=== PATIENT | male | born 1940 | race Caucasian/White ===

== ENCOUNTER → 2017-10-31 11:57 | Outpatient (CLI) | payer MEDICARE, OTHER, SELFPAY ==
--- NOTE | 2017-10-31 | DI.MRI.S_ITS ---
PROCEDURE: MR ABDOMEN WO CON INDICATIONS: MALIGNANT KIDNEY TECHNIQUE: Axial 2-D FLASH in- and [id number], axial breath-hold T2 FSE, axial STIR FSE. Optional contrast may be given, followed by axial 2-D FLASH with fat saturation acquired over the lesion of concern. COMPARISON: [facility], MR, ABDOMEN WITH AND WITHOUT CONTR, 07/31/2010, 11:08. [facility], MR, ABDOMEN WITH AND WITHOUT CONTR, 06/15/2009, 9:34. [facility], MR, ABDOMEN WITH AND WITHOUT CONTR, 09/02/2008, 11:55. [facility], MR, ABDOMEN W&WO CONTRAST, 08/14/2012, 15:02. [facility], MR, ABDOMEN WITHOUT CONTRAST, 09/30/2014, 10:07. FINDINGS: Image quality: Excellent. Region of interest: Kidneys bilaterally. The patient has undergone a partial nephrectomy on the left removing a heterogeneous enhancing mass previously present, and this had been performed before the most recent comparison MRI from 09/30/14. The current study shows multiple bilateral renal cortical cysts, right greater than left, with moderate interval enlargement of several large cysts on the right, increasing mass effect against the right kidney. For example, the largest cyst on the right projecting anteriorly and measured up to 14.0 cm and now measures 16.9 cm in maximal oblique AP dimension. Note is made of a rounded soft tissue mass at the medial border of the middle third of the left kidney previously having measured 2.9 cm and now measuring only 3.0 cm, considered to have not significantly enlarged in size from July of 2014. This is best seen on series 9 image 139, and warrants continued attention on followup imaging. Bones: Nearby osseous structures demonstrate normal overall marrow signal. IMPRESSION: Evaluated 1. No growing mass lesion found. There is a rounded masslike structure at the medial border of the middle third of the left mid kidney measuring up to 3.0 cm currently and having only measured 2.9 cm in July of 2014. By morphology and appearance this structure warrants directed attention on followup scanning but a definite underlying growing malignancy is not seen at that site. Interval increase in a number of the cysts which are large and impinge upon the right kidney as discussed above. No right renal mass is seen that would suggest presence of underlying neoplasm. Dictated by: Chance Puri M.D. on 10/31/2017 at 15:14 Approved by: Chance Puri M.D. on 10/31/2017 at 15:29
== END ==
PROVIDERS: PCP Internal Medicine; Visit Provider Transplant Surgery
DX: C64.9 Malignant neoplasm of unspecified kidney, except renal pelvis (principal)
CPT/HCPCS: 74181

== ENCOUNTER → 2018-01-23 11:52 | Outpatient (CLI) | payer MEDICARE, OTHER, SELFPAY ==
[2018-01-23 12:43] LABS: Aspartate Aminotransferase 15 IU/L (17-59); BUN Creatinine Ratio 12.4 (6-22); Blood Urea Nitrogen 31 mg/dL (9-20); Calcium 9.5 mg/dL (8.4-10.2); Carbon Dioxide 28 mmol/L (22-32); Chloride 107 mmol/L (98-107); Cholesterol 134 mg/dL (140-199); Estimated Glomerular Filt Rate 25.1 mL/min (>60); Glucose 93 mg/dL (80-110); HDL Cholesterol 40 mg/dL (40-60); HEMOLYSIS < 15 (0-50); LDL Cholesterol Calculated 86 mg/dL (<100); Potassium 3.8 mmol/L (3.4-5.1); Sodium 146 mmol/L (137-145); Triglycerides 41 mg/dL (35-150); Uric Acid 7.7 mg/dL (3.5-8.5)
[2018-01-23 13:20] LABS: Prostate Specific Antigen < 0.064 ng/mL (0.10-4.00)
== END ==
PROVIDERS: PCP Internal Medicine; Visit Provider Internal Medicine
DX: E78.2 Mixed hyperlipidemia (principal); I10 Essential (primary) hypertension; M10.9 Gout, unspecified; C61 Malignant neoplasm of prostate
CPT/HCPCS: 36415; 80048; 80061; 84153; 84450; 84550

== ENCOUNTER → 2018-03-02 10:51 | Outpatient (CLI) | payer MEDICARE, OTHER, SELFPAY ==
[2018-03-02 12:39] LABS: Add Manual Diff / Slide Review NO; Basophils Percent Auto 0.7 % (0-2); Hematocrit 35.3 % (41-53); Hemoglobin 11.8 g/dL (13.5-17.5); Lymphocytes Percent Auto 13.7 % (25-40); Mean Corpuscular HGB Conc 33.5 % (30-36); Mean Corpuscular Hemoglobin 28.9 PG (26-34); Mean Corpuscular Volume 86.3 fL (80-100); Monocytes Percent Auto 8.9 % (3-14); Neutrophils Absolute Auto 3800 /uL (3000-5900); Neutrophils Percent Auto 72.7 % (50-75); Platelet Count 192 X10^3/uL (150-400); Red Blood Cell Count 4.09 X10^6/uL (4.5-5.9); Red Cell Distribution Width 15.2 % (11.6-14.8); White Blood Cell Count 5.2 X10^3/uL (4.5-11.0)
[2018-03-02 13:10] LABS: Alanine Aminotransferase 25 IU/L (21-72); Albumin 3.9 g/dL (3.5-5.0); Albumin Globulin Ratio 1.4 (1.0-2.8); Alkaline Phosphatase 73 U/L (38-126); Aspartate Aminotransferase 19 IU/L (17-59); Bilirubin Total 1.3 mg/dL (0.2-1.3); Blood Urea Nitrogen 35 mg/dL (9-20); Calcium 9.6 mg/dL (8.4-10.2); Carbon Dioxide 31 mmol/L (22-32); Chloride 109 mmol/L (98-107); Estimated Glomerular Filt Rate 25.1 mL/min (>60); Globulin 2.8 g/dL (1.7-4.1); Glucose 89 mg/dL (80-110); HEMOLYSIS < 15 (0-50); Potassium 3.9 mmol/L (3.4-5.1); Sodium 151 mmol/L (137-145); Total Protein 6.7 g/dL (6.3-8.2)
== END ==
PROVIDERS: PCP Internal Medicine; Visit Provider Internal Medicine
DX: Q61.00 Congenital renal cyst, unspecified (principal)
CPT/HCPCS: 36415; 80053; 85025

== ENCOUNTER 2018-03-25 20:15 | Observation (INO) | payer MEDICARE, OTHER, SELFPAY ==
[2018-03-25 20:24] VITALS: BP 159/95; PULSE 94; RESP 22; TEMP 36.9; O2SAT 88
--- NOTE | 2018-03-25 20:30 | DI.RAD.S_ITS ---
PROCEDURE: XR ABDOMEN 1V INDICATIONS: severe abdominal pain s/p kidney surgery TECHNIQUE: One view of the abdomen acquired. COMPARISON: None. FINDINGS: Surgical changes and devices: None. Bowel: Gaseous distention of loops of bowel. Free air noted on the right hemidiaphragm. Soft tissues: No suspicious abdominal calcifications. Visualized solid organ contours appear normal in size. Surgical clips project over the left renal fossa. Bones: No suspicious bony lesions. IMPRESSION: 1. Pneumoperitoneum is likely related to renal surgery on 04/24/2018. 2. Gaseous distention of loops of bowel which could be related to postoperative ileus or small bowel obstruction. Dictated by: Jannie Stewart MD, PhD on 03/25/2018 at 20:55 Approved by: Jannie Stewart MD, PhD on 03/25/2018 at 20:59
--- NOTE | 2018-03-25 20:33 | ED.ABDPAIN ---
HPI - Abdominal Pain General Chief Complaint: Abdominal Pain Stated Complaint: POST OP PAIN Time Seen by Provider: 03/25/18 20:22 Source: patient and family Mode of arrival: ambulatory Limitations: no limitations History of Present Illness HPI narrative: 77M non smoker presents in outrageous generalized abdominal pain. He was discharged from [facility] this morning after staying overnight for a laparoscopic drainage of the 2000 mL cyst on his right kidney. He did well overnight and was discharged today. Patient was discharged in his normal state of health but soon after arriving at home his abdominal pain started worsening. He had taken multiple doses of his oxycodone. His pain seems to be much worse when laying flat and improved upon sitting up but is still present.. He denies any fever or chills. He has had a bowel movement and is passing gas. He denies any trouble with urination. His called the on-call surgeon who suggested that was likely pain from the gases used to expand his abdomen the procedure but suggested he come to the emergency department for evaluation Related Data Allergies Allergy/AdvReac Type Severity Reaction Status Date / Time No Known Drug Allergies Allergy Verified 03/25/18 20:35 Review of Systems Review of Systems All systems reviewed & are unremarkable except as noted in HPI and below Constitutional Denies chills, Denies fever(s), Denies lethargy and Denies weakness Eyes Denies change in vision, Denies eye discharge, Denies irritation and Denies loss of vision ENT Ears, Nose, Mouth, and Throat: Denies change in voice, Denies neck pain and Denies sore throat Cardiovascular Denies chest pain, Denies irregular heart rhythm, Denies lightheadedness, Denies palpitations, Denies dyspnea, Denies dyspnea on exertion and Denies orthopnea Respiratory Denies cough, Denies dyspnea, Denies dyspnea on exertion and Denies wheezing Gastrointestinal Gastrointestinal: Reports abdominal pain, Denies change in bowel habits, Denies diarrhea, Denies nausea and Denies vomiting Genitourinary Denies hematuria, Denies flank pain, Denies urinary incontinence and Denies urinary urgency Musculoskeletal Denies neck pain Integumentary/Breasts Denies pruritus, Denies erythema, Denies rash and Denies wounds Neurologic Denies confusion, Denies loss of vision and Denies weakness Psychiatric Denies anxiety, Denies confusion, Denies depression, Denies homicidal ideation and Denies suicidal ideation Endocrine Denies palpitations Hematologic/Lymphatic Denies easy bruising Allergic/Immunologic Denies wheezing [facility] Medical History Obstructive sleep apnea of adult (Chronic ~2007) Snoring (Chronic Unknown) Hyperlipidemia (Chronic) Hypertension (Chronic) Prostate cancer (Chronic ~1997) Renal benign neoplasm (Chronic ~2010) Exam Narrative Exam Narrative: 69-year-old male obviously in significant pain, clutching his abdomen Initial Vital Signs Initial Vital Signs: Vital Signs Temperature 98.5 F 03/25/18 20:24 Pulse Rate 94 H 03/25/18 20:24 Respiratory Rate 22 03/25/18 20:24 Blood Pressure 159/95 H 03/25/18 20:24 Pulse Oximetry 88 L 03/25/18 20:24 Const General: cooperative, well developed and acute distress Nutritional Appearance: well nourished Orientation: alert, awake, oriented x3 and not confused HENMT Head: normocephalic and atraumatic Ears: external ears normal and TM's normal bilaterally Nose: external nose normal and No nasal discharge Face and sinus: sinuses nontender, face symmetric, no sinus tenderness and No dry mucous membranes Mouth: oral mucosae normal and moist mucous membranes Teeth and gingiva: dentition normal Throat: tonsils normal and uvula midline Eyes General: appearance normal, both eyes and all related structures Eyelids: eyelids normal Conjunctivae: conjunctivae normal Sclera: sclerae normal Pupils: PERRL EOM: EOM intact bilaterally Neck Neck: normal visual inspection, trachea midline, No lymphadenopathy, No midline deformity and No JVD Lymphatic: No lymphedema Chest Chest: normal inspection of the chest Resp Effort & Inspection: normal respiratory effort, able to speak in complete sentences, no respiratory distress and no use of accessory muscles Auscultation: clear to auscultation bilaterally, no rales, no rhonchi and no wheezes Cardio Rate: regular rate Rhythm: regular rhythm Heart Sounds: no click, no gallops, no murmurs and no rubs Pulses: normal peripheral pulses GI Inspection: distended and incision Palpation: soft, no hepatosplenomegaly, firm, No guarding, No pulsatile mass and tender Auscultation: normal bowel sounds Back/Spine/Pelvis Back: No CVA tenderness Cervical Spine: cervical ROM normal and No pain with cervical ROM Thoracic/Lumbar Spine: thoracic and lumbar spine normal to inspection Skin General: no rashes or lesions noted, No jaundice and No petechiae Neuro General: alert, oriented x3, gait normal and no focal motor deficits Speech: speech normal Extrem General: full ROM, no clubbing, cyanosis or edema, no pedal edema and no calf tenderness Psych Appearance: well kempt Mental Status: mental status grossly normal Attitude: cooperative Thought Content: normal and suicidality Judgment: judgment good Course Orders Ordered: ED Orders 03/25/18 20:30 XR abdomen 1V Stat Basic Metabolic Panel Stat Complete Blood Count AUTO DIFF Stat 03/25/18 21:48 CT abdomen pelvis wo con Stat Discontinued Medications Hydromorphone HCl (Dilaudid) 0.5 mg IV NOW ONE Stop: 03/25/18 20:31 Last Admin: 03/25/18 20:36 Dose: 0.5 mg Hydromorphone HCl (Dilaudid) 0.5 mg IV NOW ONE Stop: 03/25/18 21:16 Last Admin: 03/25/18 21:22 Dose: 0.5 mg Hydromorphone HCl (Dilaudid) 0.5 mg IV NOW ONE Stop: 03/25/18 22:12 Last Admin: 03/25/18 21:55 Dose: 0.5 mg Hydromorphone HCl (Dilaudid) 0.5 mg IV NOW ONE Stop: 03/25/18 22:49 Last Admin: 03/25/18 22:53 Dose: 0.5 mg Sodium Chloride (Normal Saline 0.9%) 500 mls @ 1,000 mls/hr IV BOLUS ONE Stop: 03/25/18 21:00 Last Infusion: 03/25/18 21:21 Dose: 1,000 mls/hr Admin: 03/25/18 20:38 Dose: 1,000 mls/hr Reevaluation(s) Reevaluation #1: patient has recurrent pain med requirements and has needed 5 doses in the ED. Consultations Consultation #1: call to applications programmer provider for the surgical group at [facility] (Dr. Paulo Agrawal) whom suggests that based on history and physical along with labs and imaging patient will need only pain control and meets no criteria for transport to [facility] as any surgical intervention is highly unlikely. Consultation #2: call to hospitalist whom is happy to accept patient. Vital Signs - 8 hr 03/25/18 20:24 03/25/18 21:42 03/26/18 00:38 Temperature 98.5 F 98.5 F Pulse Rate 94 H 94 H 60 Respiratory Rate 22 22 14 Blood Pressure 159/95 H 159/95 H Blood Pressure [Left Arm] 108/57 L Pulse Oximetry 88 L 88 L 98 MDM - Abdominal Pain Differential Diagnosis Differential diagnosis: Likely abdominal pain, constipation, pancreatitis and small bowel obstruction Medical Records Attestation: I reviewed the patient's medical records. Lab Data Result diagrams: 03/25/18 20:30 03/25/18 20:30 Lab Results 03/25/18 03/25/18 Range/Units 20:30 20:30 WBC 11.6 H (4.5-11.0) X10^3/uL RBC 3.90 L (4.5-5.9) X10^6/uL Hgb 11.2 L (13.5-17.5) g/dL Hct 34.1 L (41-53) % MCV 87.3 (80-100) fL MCH 28.7 (26-34) PG MCHC 32.9 (30-36) % RDW 15.6 H (11.6-14.8) % Plt Count 190 (150-400) X10^3/uL Neut % (Auto) 88.6 H (50-75) % Lymph % (Auto) 4.6 L (25-40) % [place] % (Auto) 6.0 (3-14) % Eos % (Auto) 0.5 L (2-4) % Baso % (Auto) 0.3 (0-2) % Neut # (Auto) 25910 H (0818-7589) /uL Sodium 143 (137-145) mmol/L Potassium 3.8 (3.4-5.1) mmol/L Chloride 107 (98-107) mmol/L Carbon Dioxide 24 (22-32) mmol/L BUN 37 H (9-20) mg/dL Creatinine 2.30 H (0.66-1.25) mg/dL Estimated GFR 27.6 L (>60) mL/min BUN/Creatinine Ratio 16.1 (6-22) Glucose 182 H (80-110) mg/dL Calcium 9.1 (8.4-10.2) mg/dL Imaging Data Abdominal x-ray: Radiologist's impression: Patient: Mague Forbes#: [id number] : 9Acct:[id number] Age/Sex: 77 / MDate of Service: 03/25/18 Loc: ED Accession Number: [id number] Procedure: XR abdomen 1V Ordering Provider: Chencho Pizano D.O. PROCEDURE: XR ABDOMEN 1V INDICATIONS: severe abdominal pain s/p kidney surgery TECHNIQUE: One view of the abdomen acquired. COMPARISON: None. FINDINGS: Surgical changes and devices: None. Bowel: Gaseous distention of loops of bowel. Free air noted on the right hemidiaphragm. Soft tissues: No suspicious abdominal calcifications. Visualized solid organ contours appear normal in size. Surgical clips project over the left renal fossa. Bones: No suspicious bony lesions. IMPRESSION: 1. Pneumoperitoneum is likely related to renal surgery on 04/24/2018. 2. Gaseous distention of loops of bowel which could be related to postoperative ileus or small bowel obstruction. Dictated by: Jannie Stewart MD, PhD on 03/25/2018 at 20:55 Approved by: Jannie Stewart MD, PhD on 03/25/2018 at 20:59 CT scan - abdomen: Radiologist's impression: Mild ill-defined perinephric hematoma on the right. Several complex cystic renal lesions bilaterally Moderate free air is presumably secondary to recent surgery [place] Air[place] disease Discharge Plan Departure Patient Disposition: Admitted as Observation Clinical Impression: Intractable abdominal pain
[2018-03-25] MEDS: HYDROMORPHONE 0.5 MG INJ IV ×2 (20:36→22:53)
--- NOTE | 2018-03-25 20:37 | ED_ITS ---
HPI - Abdominal Pain General Chief Complaint: Abdominal Pain Stated Complaint: POST OP PAIN Time Seen by Provider: 03/25/18 20:22 Source: patient and family Mode of arrival: ambulatory Limitations: no limitations History of Present Illness HPI narrative: 77M non smoker presents in outrageous generalized abdominal pain. He was discharged from [facility] this morning after staying overnight for a laparoscopic drainage of the 2000 mL cyst on his right kidney. He did well overnight and was discharged today. Patient was discharged in his normal state of health but soon after arriving at home his abdominal pain started worsening. He had taken multiple doses of his oxycodone. His pain seems to be much worse when laying flat and improved upon sitting up but is still present.. He denies any fever or chills. He has had a bowel movement and is passing gas. He denies any trouble with urination. His called the on-call surgeon who suggested that was likely pain from the gases used to expand his abdomen the procedure but suggested he come to the emergency department for evaluation Related Data Allergies Allergy/AdvReac Type Severity Reaction Status Date / Time No Known Drug Allergies Allergy Verified 03/25/18 20:35 Review of Systems Review of Systems All systems reviewed & are unremarkable except as noted in HPI and below Constitutional Denies chills, Denies fever(s), Denies lethargy and Denies weakness Eyes Denies change in vision, Denies eye discharge, Denies irritation and Denies loss of vision ENT Ears, Nose, Mouth, and Throat: Denies change in voice, Denies neck pain and Denies sore throat Cardiovascular Denies chest pain, Denies irregular heart rhythm, Denies lightheadedness, Denies palpitations, Denies dyspnea, Denies dyspnea on exertion and Denies orthopnea Respiratory Denies cough, Denies dyspnea, Denies dyspnea on exertion and Denies wheezing Gastrointestinal Gastrointestinal: Reports abdominal pain, Denies change in bowel habits, Denies diarrhea, Denies nausea and Denies vomiting Genitourinary Denies hematuria, Denies flank pain, Denies urinary incontinence and Denies urinary urgency Musculoskeletal Denies neck pain Integumentary/Breasts Denies pruritus, Denies erythema, Denies rash and Denies wounds Neurologic Denies confusion, Denies loss of vision and Denies weakness Psychiatric Denies anxiety, Denies confusion, Denies depression, Denies homicidal ideation and Denies suicidal ideation Endocrine Denies palpitations Hematologic/Lymphatic Denies easy bruising Allergic/Immunologic Denies wheezing [employer] Medical History Obstructive sleep apnea of adult (Chronic ~2007) Snoring (Chronic Unknown) Hyperlipidemia (Chronic) Hypertension (Chronic) Prostate cancer (Chronic ~1997) Renal benign neoplasm (Chronic ~2010) Exam Narrative Exam Narrative: 69-year-old male obviously in significant pain, clutching his abdomen Initial Vital Signs Initial Vital Signs: Vital Signs Temperature 98.5 F 03/25/18 20:24 Pulse Rate 94 H 03/25/18 20:24 Respiratory Rate 22 03/25/18 20:24 Blood Pressure 159/95 H 03/25/18 20:24 Pulse Oximetry 88 L 03/25/18 20:24 Const General: cooperative, well developed and acute distress Nutritional Appearance: well nourished Orientation: alert, awake, oriented x3 and not confused HENMT Head: normocephalic and atraumatic Ears: external ears normal and TM's normal bilaterally Nose: external nose normal and No nasal discharge Face and sinus: sinuses nontender, face symmetric, no sinus tenderness and No dry mucous membranes Mouth: oral mucosae normal and moist mucous membranes Teeth and gingiva: dentition normal Throat: tonsils normal and uvula midline Eyes General: appearance normal, both eyes and all related structures Eyelids: eyelids normal Conjunctivae: conjunctivae normal Sclera: sclerae normal Pupils: PERRL EOM: EOM intact bilaterally Neck Neck: normal visual inspection, trachea midline, No lymphadenopathy, No midline deformity and No JVD Lymphatic: No lymphedema Chest Chest: normal inspection of the chest Resp Effort & Inspection: normal respiratory effort, able to speak in complete sentences, no respiratory distress and no use of accessory muscles Auscultation: clear to auscultation bilaterally, no rales, no rhonchi and no wheezes Cardio Rate: regular rate Rhythm: regular rhythm Heart Sounds: no click, no gallops, no murmurs and no rubs Pulses: normal peripheral pulses GI Inspection: distended and incision Palpation: soft, no hepatosplenomegaly, firm, No guarding, No pulsatile mass and tender Auscultation: normal bowel sounds Back/Spine/Pelvis Back: No CVA tenderness Cervical Spine: cervical ROM normal and No pain with cervical ROM Thoracic/Lumbar Spine: thoracic and lumbar spine normal to inspection Skin General: no rashes or lesions noted, No jaundice and No petechiae Neuro General: alert, oriented x3, gait normal and no focal motor deficits Speech: speech normal Extrem General: full ROM, no clubbing, cyanosis or edema, no pedal edema and no calf tenderness Psych Appearance: well kempt Mental Status: mental status grossly normal Attitude: cooperative Thought Content: normal and suicidality Judgment: judgment good Course Orders Ordered: ED Orders 03/25/18 20:30 XR abdomen 1V Stat Basic Metabolic Panel Stat Complete Blood Count AUTO DIFF Stat 03/25/18 21:48 CT abdomen pelvis wo con Stat Discontinued Medications Hydromorphone HCl (Dilaudid) 0.5 mg IV NOW ONE Stop: 03/25/18 20:31 Last Admin: 03/25/18 20:36 Dose: 0.5 mg Hydromorphone HCl (Dilaudid) 0.5 mg IV NOW ONE Stop: 03/25/18 21:16 Last Admin: 03/25/18 21:22 Dose: 0.5 mg Hydromorphone HCl (Dilaudid) 0.5 mg IV NOW ONE Stop: 03/25/18 22:12 Last Admin: 03/25/18 21:55 Dose: 0.5 mg Hydromorphone HCl (Dilaudid) 0.5 mg IV NOW ONE Stop: 03/25/18 22:49 Last Admin: 03/25/18 22:53 Dose: 0.5 mg Sodium Chloride (Normal Saline 0.9%) 500 mls @ 1,000 mls/hr IV BOLUS ONE Stop: 03/25/18 21:00 Last Infusion: 03/25/18 21:21 Dose: 1,000 mls/hr Admin: 03/25/18 20:38 Dose: 1,000 mls/hr Reevaluation(s) Reevaluation #1: patient has recurrent pain med requirements and has needed 5 doses in the ED. Consultations Consultation #1: call to project production engineer provider for the surgical group at [facility] ( Dr. Paulo Agrawal) whom suggests that based on history and physical along with labs and imaging patient will need only pain control and meets no criteria for transport to [facility] as any surgical intervention is highly unlikely. Consultation #2: call to hospitalist whom is happy to accept patient. Vital Signs - 8 hr 03/25/18 20:24 03/25/18 21:42 03/26/18 00:38 Temperature 98.5 F 98.5 F Pulse Rate 94 H 94 H 60 Respiratory Rate 22 22 14 Blood Pressure 159/95 H 159/95 H Blood Pressure [Left Arm] 108/57 L Pulse Oximetry 88 L 88 L 98 MDM - Abdominal Pain Differential Diagnosis Differential diagnosis: Likely abdominal pain, constipation, pancreatitis and small bowel obstruction Medical Records Attestation: I reviewed the patient's medical records. Lab Data Result diagrams: 03/25/18 20:30 03/25/18 20:30 Lab Results 03/25/18 03/25/18 Range/Units 20:30 20:30 WBC 11.6 H (4.5-11.0) X10^3/uL RBC 3.90 L (4.5-5.9) X10^6/uL Hgb 11.2 L (13.5-17.5) g/dL Hct 34.1 L (41-53) % MCV 87.3 (80-100) fL MCH 28.7 (26-34) PG MCHC 32.9 (30-36) % RDW 15.6 H (11.6-14.8) % Plt Count 190 (150-400) X10^3/uL Neut % (Auto) 88.6 H (50-75) % Lymph % (Auto) 4.6 L (25-40) % [place] % (Auto) 6.0 (3-14) % Eos % (Auto) 0.5 L (2-4) % Baso % (Auto) 0.3 (0-2) % Neut # (Auto) 63242 H (9710-3340) /uL Sodium 143 (137-145) mmol/L Potassium 3.8 (3.4-5.1) mmol/L Chloride 107 (98-107) mmol/L Carbon Dioxide 24 (22-32) mmol/L BUN 37 H (9-20) mg/dL Creatinine 2.30 H (0.66-1.25) mg/dL Estimated GFR 27.6 L (>60) mL/min BUN/Creatinine Ratio 16.1 (6-22) Glucose 182 H (80-110) mg/dL Calcium 9.1 (8.4-10.2) mg/dL Imaging Data Abdominal x-ray: Radiologist's impression: Patient: Mague Forbes#: [id number] : 9Acct:[id number] Age/Sex: 77 / MDate of Service: 03/25/18 Loc: ED Accession Number: [id number] Procedure: XR abdomen 1V Ordering Provider: Chencho Pizano D.O. PROCEDURE: XR ABDOMEN 1V INDICATIONS: severe abdominal pain s/p kidney surgery TECHNIQUE: One view of the abdomen acquired. COMPARISON: None. FINDINGS: Surgical changes and devices: None. Bowel: Gaseous distention of loops of bowel. Free air noted on the right hemidiaphragm. Soft tissues: No suspicious abdominal calcifications. Visualized solid organ contours appear normal in size. Surgical clips project over the left renal fossa. Bones: No suspicious bony lesions. IMPRESSION: 1. Pneumoperitoneum is likely related to renal surgery on 04/24/2018. 2. Gaseous distention of loops of bowel which could be related to postoperative ileus or small bowel obstruction. Dictated by: Jannie Stewart MD, PhD on 03/25/2018 at 20:55 Approved by: Jannie Stewart MD, PhD on 03/25/2018 at 20:59 CT scan - abdomen: Radiologist's impression: Mild ill-defined perinephric hematoma on the right. Several complex cystic renal lesions bilaterally Moderate free air is presumably secondary to recent surgery [place] Air[place] disease Discharge Plan Departure Patient Disposition: Admitted as Observation Clinical Impression: Intractable abdominal pain
[2018-03-25] MEDS: SODIUM CHLORIDE 0.9% 500 ML 1000 ML IV (20:38)
[2018-03-25 20:41] LABS: Add Manual Diff / Slide Review NO; Basophils Percent Auto 0.3 % (0-2); Eosinophils Percent Auto 0.5 % (2-4); Hematocrit 34.1 % (41-53); Hemoglobin 11.2 g/dL (13.5-17.5); Lymphocytes Percent Auto 4.6 % (25-40); Mean Corpuscular HGB Conc 32.9 % (30-36); Mean Corpuscular Hemoglobin 28.7 PG (26-34); Mean Corpuscular Volume 87.3 fL (80-100); Neutrophils Absolute Auto 10300 /uL (3000-5900); Neutrophils Percent Auto 88.6 % (50-75); Platelet Count 190 X10^3/uL (150-400); Red Cell Distribution Width 15.6 % (11.6-14.8); White Blood Cell Count 11.6 X10^3/uL (4.5-11.0)
[2018-03-25 20:45] LABS: BUN Creatinine Ratio 16.1 (6-22); Blood Urea Nitrogen 37 mg/dL (9-20); Calcium 9.1 mg/dL (8.4-10.2); Carbon Dioxide 24 mmol/L (22-32); Chloride 107 mmol/L (98-107); Estimated Glomerular Filt Rate 27.6 mL/min (>60); Glucose 182 mg/dL (80-110); HEMOLYSIS < 15 (0-50); Potassium 3.8 mmol/L (3.4-5.1); Sodium 143 mmol/L (137-145)
[2018-03-25] MEDS: HYDROMORPHONE 1 MG INJ 0.5 MG IV ×2 (21:22→21:55)
[2018-03-25 21:42] VITALS: BP 159/95; PULSE 94; RESP 22; TEMP 36.9; O2SAT 88
--- NOTE | 2018-03-25 21:48 | DI.CT.S_ITS ---
PROCEDURE: CT ABDOMEN PELVIS WO CON INDICATIONS: severe abdominal pain. Recent surgery for laparoscopic kidney lesion resection TECHNIQUE: Noncontrast 5 mm thick sections acquired from the diaphragms to the symphysis. 5 mm coronal and sagittal reformats were then performed. For radiation dose reduction, the following was used: automated exposure control, adjustment of mA and/or kV according to patient size. COMPARISON: Merged With [facility], CT, ABD/PELVIS W/O CON (PNL), 12/21/2008, 12:25. FINDINGS: Image quality: Excellent. ABDOMEN: Bilateral trace pleural effusions, with areas of consolidation within both lung bases. Heart is enlarged. Coronary artery calcifications are present. Solid organs: Liver is normal in size. Gallbladder contains an incidental 3-4 mm calculus. Pancreas is normal in contours. Spleen is normal in size. No adrenal nodules. There are extensive complex bilateral renal cystic lesions, some which demonstrating calcifications for example in the left image 21 series 2, and some with increased internal nodular attenuation image 43 series 2 measuring 3.7 x 3.2 cm. These are incompletely evaluated in the absence of IV contrast. There is ill-defined perinephric attenuation suggestive of hematoma on the right. Intraperitoneal free air is seen scattered throughout the right upper quadrant and anterior abdominal wall. No definite free fluid. No bowel obstruction is seen. Nodes and vessels: No retroperitoneal or mesenteric adenopathy by size criteria. Aorta and inferior vena cava are normal in caliber. Miscellaneous: No ventral hernias. PELVIS: Prostate brachytherapy seeds are seen. The bladder is grossly unremarkable although there is a small focus of intraluminal gas. Miscellaneous: No inguinal hernias or adenopathy. Bones: No suspicious bony lesions. No vertebral body compression fractures. IMPRESSION: Bilateral lower lobe areas of consolidation suggestive of aspiration/atelectasis, although cannot exclude pneumonia. Therefore please correlate clinically. Trace bilateral pleural effusions. Ill-defined right perinephric increased attenuation may represent perinephric hematoma. Scattered intraperitoneal free air presumably postoperative. There is also soft tissue gas involving the anterior abdominal wall and inguinal regions. Multiple cystic lesions involving both kidneys some of which demonstrate complex appearance. Technically, cystic renal malignancy cannot be excluded. Some of these are grossly unchanged since 12/21/08 however limited evaluation given the absence of IV contrast. Small focus of gas within the bladder which may be due to recent catheterization (versus much less likely occult fistula or infection with gas-forming organism). Incidental cholelithiasis. Dictated by: Shubham Kurtz M.D. on 03/26/2018 at 7:25 Approved by: Shubham Kurtz M.D. on 03/26/2018 at 7:33
[2018-03-26] VITALS (9 sets, daily range): BP systolic 108–162; BP diastolic 52–91; PULSE 52–74; RESP 14–20; TEMP 36.6–36.8; O2SAT 91–99; BMI 31.2
--- NOTE | 2018-03-26 01:20 | PC.NURSE ---
Med Rec was attempted, Pt stated med list was left at home and she would bring med list in later today.
--- NOTE | 2018-03-26 01:44 | PM.HP.1 ---
History of Present Illness Date Patient Seen: 03/26/18 Chief complaint: POST OP PAIN Narrative: The patient is a 77-year-old male who presents with persistent abdominal pain. Describes abdominal discomfort as a severe ache. Associated symptoms include bilateral shoulder discomfort and abdominal distention. On 03/24/2018 patient underwent right laparoscopic renal cyst decortication, 3 cysts were drained with the following volumes 2000 mL, 560 mL, and 300 mL. The procedure required insufflation of CO2 gas into the abdominal cavity. Patient was discharged home at approximately 3:00 p.m. and at 4:30 a.m. developed abdominal pain that was minimally relieved with 2 doses of oxycodone / 1000 tylenol, which she has taken 6 hours apart. Patient denies chest pain, palpitations, nausea, vomiting, or hematuria. Since discharge she has had a bowel movement. No flatus reported. Symptoms are exacerbated by lying supine and relieved with upright position and IV opioids. Abdominal x-ray revealed (1) pneumoperitoneum and (2) gaseous distention of loops of bowel which could be related to post-operative ileus or small bowel obstruction Per ED physician Dr. Pizano, patient case discussed with the surgeon at [facility]. No acute additional concerns / recommendations. Patient History Medical History Obstructive sleep apnea of adult (Chronic ~2007) Snoring (Chronic Unknown) Hyperlipidemia (Chronic) Hypertension (Chronic) Prostate cancer (Chronic ~1997) Renal benign neoplasm (Chronic ~2010) Family & Social History Family History: Reviewed 03/25/18 by Chencho Pizano, Safety & Behavioral: Feels Safe in Current Yes Environment Tobacco & Substance use: No known history of tobacco, alcohol, recreational drug use Meds Allergies Allergy/AdvReac Type Severity Reaction Status Date / Time No Known Drug Allergies Allergy Verified 03/25/18 20:35 Review of Systems Review of Systems All systems reviewed & are unremarkable except as noted in HPI and below Exam Vital Signs (past 8 hours): - 03/25/18 20:24 03/25/18 21:42 03/26/18 00:38 Temperature 98.5 F 98.5 F Pulse Rate 94 H 94 H 60 Respiratory Rate 22 22 14 Blood Pressure 159/95 H 159/95 H Blood Pressure [Left Arm] 108/57 L Pulse Oximetry 88 L 88 L 98 Oxygen Delivery Method Room Air Narrative Exam Narrative: Constitutional: NAD, cooperative Head: NC / AT Eyes: appearance normal, alignment normal, sclerae anicteric, pupils equal and reactive, EOMI, Ears: external ears normal Nose: external nose normal, no epistaxis no nasal discharge Throat: oropharynx normal, MMM Neck: normal visual inspection, full ROM, no JVD Chest: normal inspection of the chest, no tenderness to palpation Resp: CTA upper lobes, diminished lower lobes Cardio: S1S2, no murmur GI: abdomen rounded, moderately distended, diffuse tenderness, laparoscopic incisions present, hypoactive BS Skin: laparascopic incisions present, intact Neuro: AOx3, no focal neurological deficits Extrem: RLE - no edema; LLE - 2-3+ edema (chronic) Psych: Normal mood and affect Objective Labs Result Diagrams: 03/25/18 20:30 03/25/18 20:30 Labs: Laboratory Results - last 24 hr 03/25/18 03/25/18 20:30 20:30 WBC 11.6 H RBC 3.90 L Hgb 11.2 L Hct 34.1 L MCV 87.3 MCH 28.7 MCHC 32.9 RDW 15.6 H Plt Count 190 Neut % (Auto) 88.6 H Lymph % (Auto) 4.6 L [place] % (Auto) 6.0 Eos % (Auto) 0.5 L Baso % (Auto) 0.3 Neut # (Auto) 91716 H Sodium 143 Potassium 3.8 Chloride 107 Carbon Dioxide 24 BUN 37 H Creatinine 2.30 H Estimated GFR 27.6 L BUN/Creatinine Ratio 16.1 Glucose 182 H Calcium 9.1 Assessment & Plan Plan: Assessment/Plan Narrative: Abdominal pain 2/2 pneumoperitoneum / CO2 insufflation - tramadol 50 mg and tylenol 1000 mg Q6H prn pain - dilaudid IV 0.5 mg IV for breakthrough pain (minimize use of Dilaudid as much as possible) - intermittent heat application - Colace and simethicone 160 TID (x2 days, then d/c) - encourage ambulation Renal Cysts, s/p right laparoscopic renal cyst decortication CKD Stage IV, sCr 2.3 / GFR 27.6 - will need to be mindful of joints of opioids /pain medication agents in the setting of advanced renal disease - avoid nephrotoxin agents Leukocytosis, mild (WBC 11.6) S/P recent surgical procedure. No fever / chills. Anemia of CKD, Hgb 11.2, stable, no active s/s of bleeding Hypertension, controlled, resume home anti-hypertensive regimen when home med list is provided patient does not know his home medications, his will bring the list today EDU, on CPAP, may use while in the hospital
[2018-03-26] MEDS: TRAMADOL 50 MG TABLET PO ×2 (03:17→15:04)
[2018-03-26] MEDS: ACETAMINOPHEN 325 MG TABLET 650 MG PO (03:21)
--- NOTE | 2018-03-26 04:30 | PC.NURSE ---
Pt arrived on unit approx 0230 from ER. VSS, A and O x 4. Pt is rated pain across chest and R flank as 2-3/10. Good relief from 50 mg Tramadol, po. HR reg, LS clear. BM at [facility] prior to procedure on cyst. Pt able to sleep. Home CPAP in place per RT.
[2018-03-26] MEDS: SIMETHICONE 80 MG TABLET 160 MG PO ×2 (10:04→15:05)
[2018-03-26] MEDS: DOCUSATE 100 MG CAPSULE PO (10:04)
[2018-03-26] MEDS: SODIUM CHLORIDE 0.9% FLUSH 10 ML IV (10:06)
[2018-03-26] MEDS: HEPARIN 5,000 UNIT/ML VIAL 5000 UNIT SUBCUT (10:15)
--- NOTE | 2018-03-26 12:08 | PM.DS.1 ---
History of Present Illness Date Patient Seen: 03/26/18 Chief complaint: POST OP PAIN Narrative: The patient is a 77-year-old male who presents with persistent abdominal pain. Describes abdominal discomfort as a severe ache. Associated symptoms include bilateral shoulder discomfort and abdominal distention. On 03/24/2018 patient underwent right laparoscopic renal cyst decortication, 3 cysts were drained with the following volumes 2000 mL, 560 mL, and 300 mL. The procedure required insufflation of CO2 gas into the abdominal cavity. Patient was discharged home at approximately 3:00 p.m. and at 4:30 a.m. developed abdominal pain that was minimally relieved with 2 doses of oxycodone / 1000 tylenol, which she has taken 6 hours apart. Patient denies chest pain, palpitations, nausea, vomiting, or hematuria. Since discharge she has had a bowel movement. No flatus reported. Symptoms are exacerbated by lying supine and relieved with upright position and IV opioids. Abdominal x-ray revealed (1) pneumoperitoneum and (2) gaseous distention of loops of bowel which could be related to post-operative ileus or small bowel obstruction Per ED physician Dr. Pizano, patient case discussed with the surgeon at [facility]. No acute additional concerns / recommendations. Discharge Providers Date of admission: 03/26/18 01:19 Primary care physician: Durga Bingham MD Consults: 03/26/18 01:32 Consult to Discharge Planning Routine Comment: Discharge provider: Yamila Mcmahan MD Discharge Date: 03/26/18 Summary Discharge Diagnosis: Post Operative Pain S/P laparascopic renal cyst decortication Obstructive Sleep Apnea Hyperlipidemia History of Prostate Cancer Benign Renal Neoplasm Hospital Course: Patient was admitted to the hospital for severe pain following discharge from [facility] for laprarascopic renal cyst decortication. He had pain up to the bilateral shoulders felt to be secondary to CO2 gas from the insufflation. Patient recieved IV dilaudid in the ED with significant improvement. Today he was eating felt significantly improved and reported pain at 1/10. Patient denied chest pain or shortness of breath. He was deemed appropriate for discharge home. Status at Discharge Functional status at discharge: independent ambulation Overall status at discharge: patient is back to baseline Time Spent with Patient Less than 30 minutes Exam Vital Signs (past 8 hours): - 03/26/18 06:00 03/26/18 06:40 03/26/18 07:26 Temperature 97.9 F 97.8 F Pulse Rate 52 L 61 Respiratory Rate 16 20 Blood Pressure 141/73 H 146/72 H Pulse Oximetry 95 95 94 03/26/18 09:54 Temperature Pulse Rate Respiratory Rate Blood Pressure Pulse Oximetry 91 Oxygen Delivery Method Room Air Oxygen Flow Rate 0 Narrative Exam Narrative: Pleasant gentleman in no acute distress Lungs: clear to auscultation CV: RRR nl Sl S2 Abd: distended, soft/ non tender/ non palpable masses Ext: no edema Objective Labs Result Diagrams: 03/25/18 20:30 03/25/18 20:30 Labs: Laboratory Results - last 24 hr 03/25/18 03/25/18 20:30 20:30 WBC 11.6 H RBC 3.90 L Hgb 11.2 L Hct 34.1 L MCV 87.3 MCH 28.7 MCHC 32.9 RDW 15.6 H Plt Count 190 Neut % (Auto) 88.6 H Lymph % (Auto) 4.6 L [place] % (Auto) 6.0 Eos % (Auto) 0.5 L Baso % (Auto) 0.3 Neut # (Auto) 81735 H Sodium 143 Potassium 3.8 Chloride 107 Carbon Dioxide 24 BUN 37 H Creatinine 2.30 H Estimated GFR 27.6 L BUN/Creatinine Ratio 16.1 Glucose 182 H Calcium 9.1 Discharge Plan Discharge Plan Discharge Problem: Intractable abdominal pain Patient Disposition: Home Transportation: Private vehicle Provider Discharge Instructions Diet: Low-sodium Activity: As tolerated Discharge Data Primary Care Provider: Durga Bingham V Attending Provider: Aliyah Elias Admit Date/Time: 03/26/18 01:19 Quality VTE Deep Vein Thrombosis/Pulmonary Embolism Present on Admission: No
--- NOTE | 2018-03-26 14:07 | CM.IDA ---
Discharge Planning/Care Management CM Discharge Assessment Start: 03/26/18 13:54 Freq: Status: Active Protocol: Document 03/26/18 13:54 ANABELLA (Rec: 03/26/18 14:00 ANABELLA [email or web address]) Discharge Planning Assessment Assigned Neurosurgeon NOVA Billings DPOA/Assigned Designee Name Robyn Forbes, spouse Contact Information [phone] Advance Directives? Yes Advance Directives on File No History Provided By Patient Prior Living Arrangements House Household Members spouse Type of transporation used prior to Drives own vehicle admit Independent with ADL's Yes Is patient alert and oriented? Yes Comment Spouse is also indp and active Barriers to Discharge No Comment Met w/pt this morning, explained role. Pt is indp and active at baseline. He had a procedure at Friday, wherein at least 2 L of fluid were removed from benign cysts on his kidney. Pt was DC and desrcribes having the worst ache in my life throughout his chest. Once he got home, he layed down and it got worse. Spouse drove him to the ER. Pt hopes to see the MD soon and go home today. DC order in place today for home. No SW needs indicated. Discharge Plan Home Transportation Arrangement Spouse Referrals Initiated None needed Whiteboard Updated in Patient Room with Yes name and ext. # of Neurosurgeon
== END 2018-03-26 16:49 | disposition home or self-care (01) ==
LOC: ED 03-26 00:52 → AC 03-26 01:20
PROVIDERS: Admitting Provider Nurse Practitioner Gerontology; Emergency Provider Emergency Medicine; Family Provider Internal Medicine; PCP Internal Medicine; Visit Provider Nurse Practitioner Gerontology
DX: G89.18 Other acute postprocedural pain (principal); G47.33 Obstructive sleep apnea (adult) (pediatric); E78.5 Hyperlipidemia, unspecified; N18.4 Chronic kidney disease, stage 4 (severe); D72.829 Elevated white blood cell count, unspecified; D63.1 Anemia in chronic kidney disease; I12.9 Hypertensive chronic kidney disease with stage 1 through stage 4 chronic kidney disease, or unspecified chronic kidney disease
CPT/HCPCS: 36591; 74018; 74176; 80048; 85025; 99283; 99284; G0378; J1170; J1644

== ENCOUNTER → 2018-04-14 08:44 | Outpatient (CLI) | payer MEDICARE, OTHER, SELFPAY ==
[2018-03-26 02:43] VITALS: BMI 31.2
[2018-04-14 10:44] LABS: Blood Urea Nitrogen 45 mg/dL (9-20); Calcium 9.7 mg/dL (8.4-10.2); Carbon Dioxide 27 mmol/L (22-32); Chloride 108 mmol/L (98-107); Estimated Glomerular Filt Rate 25.1 mL/min (>60); Glucose 89 mg/dL (80-110); HEMOLYSIS < 15 (0-50); Potassium 3.9 mmol/L (3.4-5.1); Sodium 148 mmol/L (137-145)
== END ==
PROVIDERS: PCP Internal Medicine; Visit Provider Internal Medicine
DX: I10 Essential (primary) hypertension (principal)
CPT/HCPCS: 36415; 80048

== ENCOUNTER → 2019-06-01 11:25 | Outpatient (CLI) | payer MEDICARE, OTHER, SELFPAY ==
[2018-03-26 02:43] VITALS: BMI 31.2
[2019-06-01 12:42] LABS: BUN Creatinine Ratio 18.2 (6-22); Blood Urea Nitrogen 51 mg/dL (9-20); Calcium 9.7 mg/dL (8.4-10.2); Carbon Dioxide 26 mmol/L (22-32); Chloride 107 mmol/L (98-107); Estimated Glomerular Filt Rate 21.9 mL/min (>60); Glucose 117 mg/dL (80-110); Sodium 143 mmol/L (137-145)
[2019-06-01 12:45] LABS: HEMOLYSIS 70 (0-50)
== END ==
PROVIDERS: PCP Internal Medicine; Visit Provider Internal Medicine Cardiovascular Disease
DX: N18.3 Chronic kidney disease, stage 3 (moderate) (principal); I25.110 Atherosclerotic heart disease of native coronary artery with unstable angina pectoris
CPT/HCPCS: 36415; 80048

== ENCOUNTER → 2019-12-14 16:44 | Outpatient (CLI) | payer MEDICARE, OTHER, SELFPAY ==
[2018-03-26 02:43] VITALS: BMI 31.2
[2019-12-14 17:39] LABS: Add Manual Diff / Slide Review NO; Basophils Absolute Auto 100 /uL (0-100); Basophils Percent Auto 1.1 % (0-2); Eosinophils Absolute Auto 200 /uL (0-450); Eosinophils Percent Auto 3.1 % (2-4); Hematocrit 32.3 % (41-53); Hemoglobin 10.7 g/dL (13.5-17.5); Lymphocytes Absolute Auto 800 /uL (1100-4500); Lymphocytes Percent Auto 15.1 % (25-40); Mean Corpuscular Volume 87.7 fL (80-100); Monocytes Absolute Auto 500 /uL (0-900); Monocytes Percent Auto 9.3 % (3-14); Neutrophils Absolute Auto 3900 /uL (1500-7000); Neutrophils Percent Auto 71.4 % (50-75); Platelet Count 183 X10^3/uL (150-400); Red Blood Cell Count 3.68 X10^6/uL (4.5-5.9); Red Cell Distribution Width 15.4 % (11.6-14.8); White Blood Cell Count 5.5 X10^3/uL (4.5-11.0)
[2019-12-14 18:09] LABS: Aspartate Aminotransferase 17 IU/L (17-59); BUN Creatinine Ratio 15.8 (6-22); Blood Urea Nitrogen 46 mg/dL (9-20); Calcium 9.7 mg/dL (8.4-10.2); Carbon Dioxide 29 mmol/L (22-32); Chloride 109 mmol/L (98-107); Cholesterol 122 mg/dL (140-199); Glucose 90 mg/dL (80-110); HDL Cholesterol 29 mg/dL (40-60); HEMOLYSIS < 15 (0-50); LDL Cholesterol Calculated 83 mg/dL (<100); Magnesium 2.3 mg/dL (1.6-2.3); Phosphorous 3.6 mg/dL (2.3-3.7); Potassium 4.2 mmol/L (3.4-5.1); Sodium 143 mmol/L (137-145); Triglycerides 51 mg/dL (35-150); Uric Acid 9.3 mg/dL (3.5-8.5)
[2019-12-14 18:40] LABS: Prostate Specific Antigen < 0.064 ng/mL (0.10-4.00)
[2019-12-15 06:40] LABS: Parathyroid Hormone Int 187 pg/mL (15-65)
== END ==
PROVIDERS: PCP Internal Medicine; Referring Provider Internal Medicine; Visit Provider Internal Medicine
DX: R60.9 Edema, unspecified (principal); N18.9 Chronic kidney disease, unspecified; E78.2 Mixed hyperlipidemia; C61 Malignant neoplasm of prostate
CPT/HCPCS: 36415; 80048; 80061; 83735; 83970; 84100; 84153; 84450; 84550; 85025

== ENCOUNTER → 2020-07-05 14:52 | Outpatient (CLI) | payer MEDICARE, OTHER, SELFPAY ==
[2018-03-26 02:43] VITALS: BMI 31.2
[2020-07-05] MEDS: COVID-19 VACC #1, MRNA(MOD) 100 MCG/0.5 ML VIAL IM (15:00)
== END ==
PROVIDERS: PCP Internal Medicine; Visit Provider Internal Medicine
DX: Z23 Encounter for immunization (principal)
CPT/HCPCS: 0011A; 91301

== ENCOUNTER → 2020-08-03 14:29 | Outpatient (CLI) | payer MEDICARE, OTHER, SELFPAY ==
[2018-03-26 02:43] VITALS: BMI 31.2
[2020-08-03] MEDS: COVID-19 VACC #2, MRNA(MOD) 100 MCG/0.5 ML VIAL IM (14:34)
== END ==
PROVIDERS: PCP Internal Medicine; Visit Provider Internal Medicine
DX: Z23 Encounter for immunization (principal)
CPT/HCPCS: 0012A; 91301

== ENCOUNTER → 2020-08-25 14:28 | Outpatient (CLI) | payer MEDICARE, OTHER, SELFPAY ==
[2018-03-26 02:43] VITALS: BMI 31.2
[2020-08-25 16:06] LABS: Vitamin D 25 Hydroxy (D3) 46.8 ng/mL (30.0-100.0)
[2020-08-26 06:37] LABS: Parathyroid Hormone Int 244 pg/mL (15-65)
== END ==
PROVIDERS: PCP Internal Medicine; Referring Provider Internal Medicine Nephrology; Visit Provider Internal Medicine Nephrology
DX: N18.4 Chronic kidney disease, stage 4 (severe) (principal); G47.33 Obstructive sleep apnea (adult) (pediatric)
CPT/HCPCS: 36415; 82306; 83970; 99213

== ENCOUNTER → 2020-09-08 13:42 | Outpatient (CLI) | payer MEDICARE, OTHER, SELFPAY ==
[2018-03-26 02:43] VITALS: BMI 31.2
[2020-09-08 14:24] LABS: Albumin 3.7 g/dL (3.5-5.0); BUN Creatinine Ratio 16.9 (6-22); Blood Urea Nitrogen 52 mg/dL (9-20); Calcium 9.7 mg/dL (8.4-10.2); Carbon Dioxide 24 mmol/L (22-32); Chloride 113 mmol/L (98-107); Estimated Glomerular Filt Rate 19.7 mL/min (>60); Glucose 131 mg/dL (80-110); HEMOLYSIS < 15 (0-50); Phosphorous 3.6 mg/dL (2.3-3.7); Potassium 4.1 mmol/L (3.4-5.1); Sodium 144 mmol/L (137-145)
== END ==
PROVIDERS: PCP Internal Medicine; Referring Provider Internal Medicine Nephrology; Visit Provider Internal Medicine Nephrology
DX: N18.4 Chronic kidney disease, stage 4 (severe) (principal)
CPT/HCPCS: 36415; 80069

== ENCOUNTER → 2021-03-05 12:37 | Outpatient (CLI) | payer MEDICARE, OTHER, SELFPAY ==
[2018-03-26 02:43] VITALS: BMI 31.2
[2021-03-05 13:30] LABS: Add Manual Diff / Slide Review NO; Basophils Absolute Auto 100 /uL (0-100); Basophils Percent Auto 0.9 % (0-2); Eosinophils Absolute Auto 200 /uL (0-450); Eosinophils Percent Auto 3.4 % (2-4); Hematocrit 29.4 % (41-53); Hemoglobin 9.5 g/dL (13.5-17.5); Lymphocytes Absolute Auto 600 /uL (1100-4500); Lymphocytes Percent Auto 11.1 % (25-40); Mean Corpuscular HGB Conc 32.3 % (30-36); Mean Corpuscular Hemoglobin 28.7 PG (26-34); Mean Corpuscular Volume 89.1 fL (80-100); Monocytes Absolute Auto 500 /uL (0-900); Monocytes Percent Auto 8.8 % (3-14); Neutrophils Absolute Auto 4400 /uL (1500-7000); Neutrophils Percent Auto 75.8 % (50-75); Platelet Count 192 X10^3/uL (150-400); Red Cell Distribution Width 14.4 % (11.6-14.8); White Blood Cell Count 5.8 X10^3/uL (4.5-11.0)
[2021-03-05 13:45] LABS: Albumin 3.9 g/dL (3.5-5.0); BUN Creatinine Ratio 10.9 (6-22); Blood Urea Nitrogen 69 mg/dL (9-20); Carbon Dioxide 24 mmol/L (22-32); Chloride 112 mmol/L (98-107); Estimated Glomerular Filt Rate 8.6 mL/min (>60); Glucose 93 mg/dL (80-110); HEMOLYSIS < 15 (0-50); Potassium 4.4 mmol/L (3.4-5.1); Sodium 145 mmol/L (137-145)
[2021-03-05 16:40] LABS: Vitamin D 25 Hydroxy (D3) 50.4 ng/mL (30.0-100.0)
[2021-03-06 09:19] LABS: Parathyroid Hormone Int 352 pg/mL (15-65)
== END ==
PROVIDERS: PCP Internal Medicine; Referring Provider Internal Medicine Nephrology; Visit Provider Internal Medicine Nephrology
DX: N18.4 Chronic kidney disease, stage 4 (severe) (principal); N18.9 Chronic kidney disease, unspecified; E83.9 Disorder of mineral metabolism, unspecified; M89.9 Disorder of bone, unspecified
CPT/HCPCS: 36415; 80069; 82306; 83970; 85025